=== PATIENT | male | born 1995 | race Two or more races ===

== ENCOUNTER 2022-09-16 17:29 | Inpatient (IN) ==
[2022-09-16] MEDS ORDERED: LORazepam 2 MG/1 ML VIAL IV STA ×2 (18:16→18:47)
[2022-09-16] MEDS ORDERED: SODIUM CHLORIDE 0.9% 1000ML 1,000 ML IV SCH (18:30)
[2022-09-16 18:37] LABS: Basophils # (auto) 0.04 K/uL (0-0.2); Basophils % (auto) 0.4 %; Hematocrit (blood only) 46.2 % (40.1-51.0); Hemoglobin 16.6 g/dl (14.0-18.0); Immature Granulocytes # (auto) 0.03 K/uL (0.00-0.02); Immature Granulocytes % (auto) 0.3 %; Lymphocytes # (auto) 1.48 K/uL (1.2-3.4); Lymphocytes % (auto) 16.2 %; Mean Corpuscular Hemoglobin 30.6 pg (25.0-34.0); Mean Corpuscular Hgb Conc 35.9 g/dL (32.0-36.0); Mean Corpuscular Volume 85.1 fL (80.0-100.0); Mean Platelet Volume 10.7 fL (9.4-12.4); Monocytes # (auto) 0.62 K/uL (0.24-0.82); Monocytes % (auto) 6.8 %; Neutrophils # (auto) 6.99 K/uL (1.4-6.5); Neutrophils % (auto) 76.3 %; Platelet Count 201 K/uL (130-400); RDW Coefficient of Variation 11.8 % (11.5-14.5); RDW Standard Deviation 35.7 fL (36.4-46.3); Red Blood Count 5.43 M/uL (4.63-6.08); White Blood Count 9.16 K/ul (4.8-10.8)
[2022-09-16] MEDS ORDERED: SODIUM CHLORIDE 0.9% 1000ML 1,000 ML IV ONE (18:47)
--- NOTE | 2022-09-16 18:51 | Emergency Department Note ---
Impression & Plan Overdose, AMS (altered mental status) ED Provider Note NAME: MARYAM [id number] KRISTOFER AGE: 27 SEX: M : 1995 ARRIVES VIA: Walk-In INFORMANT: Patient, the [facility] ED PROVIDER(S): Yoni Omalley DO CHIEF COMPLAINT: Overdose HPI: The patient is a 27-year-old male that presented to the emergency department from the retirement for an evaluation of overdose. The patient admits to taking BuSpar does a role in Trileptal and "another drug" that he does not know the name of. The patient presented with guards who do not know the patient. [facility] to [facility] the patient took these medications at an unknown time and an unknown amount with an unknown intent. The patient was brought through triage. The triage nurse did call poison control center prior to bringing the patient back to the emergency department. ROS: See above HPI for pertinent positives & negatives. A total of 10 systems reviewed and were otherwise negative. PAST MEDICAL HISTORY: See Below PAST SURGICAL HISTORY: See Below FAMILY HISTORY: See Below SOCIAL HISTORY: See Below HOME MEDICATIONS: See Below ALLERGIES: See Below VITALS: See Below PHYSICAL EXAMINATION: GENERAL: The patient is awake and alert. He is very animated and appears to be responding to internal stimuli. EYES: The conjunctivae are clear. The pupils are round and reactive. EARS, NOSE, MOUTH AND THROAT: The nose is without any evidence of any deformity. Mucous membranes are dry. NECK: The neck is nontender and supple. RESPIRATORY: Normal respiratory effort is noted there is no evidence of wheezing rhonchi or rales CARDIOVASCULAR: Tachycardic and regular heart sounds were noted to auscultation. There is no definite murmur. GASTROINTESTINAL: The abdomen is soft. Abdomen is nontender. MUSCULOSKELETAL/EXTREMITIES: There is no evidence of gross deformity full range of motion is noted in the hips and shoulders. SKIN: There is no obvious evidence of any rash. There are no petechiae, pallor or cyanosis noted. NEUROLOGIC: The patient is awake and alert. He answers questions appropriately but loses concentration easily. Patellar tendon reflexes are 3+ bilaterally. PSYCH: Patient makes poor eye contact mostly evaluation. He is currently d enying any suicidal homicidal ideation. He does admit to taking the medications but states he was try to get high. MEDICAL DECISION MAKING: The patient is a 27-year-old male who presented to the emergency department for an evaluation of altered mental status and possible drug overdose. The patient came from the retirement. He does admit that he took multiple doses of medication in an attempt to get high. He was very vague about any suicidal ideation. The patient was treated with IV fluids and IV Ativan in the emergency department. He was reevaluated multiple times. Given the reported medications that he takes he may be having some adverse effects from this medication. I discussed the patient's laboratory and radiographic studies with him. He was not able to be medically cleared in the emergency department. For this reason I [facility] agreed to evaluate the patient in the emergency department for further management and disposition. Triage Nursing notes reviewed. Prior medical records reviewed Vital Signs: reviewed and remarkable for hypotension. Differential diagnosis: Mood disorder, infection, hypoglycemia, electrolyte abnormalities, cardiac sources, intracerebral event, toxicologic, trauma, neurologic, as well as other pathologies. ER treatment provided: See below Diagnostics interpreted by me: ECG: EKG was obtained in the emergency department. My interpretation is sinus tachycardia 119 bpm. There was no ectopy. There was no acute ST segment a bnormalities noted. No previous tracing was available. Cardiac Monitoring: An order was placed for continuous cardiac monitoring. The monitor shows a rate of 83 bpm with sinus rhythm. Laboratory studies: As stated above and show below. Imaging studies: See below. Radiographic imaging was reviewed by myself Consultation(s): I discussed this case with Dr. Alvarez who [facility] ED COURSE: Procedures: none Critical Care: I have personally spent greater than 35 minutes of critical care time in the di rect management of this patient. This includes bedside care, interpretation of diagnostic studies, and testing, discussion with consultants, patient, and family members, and other required patient management activities. This 35 minutes is in excess of all separately billable procedures. Past Med/Surg History Social History Smoking Status: Unknown if ever smoked Preferred Language: Senegalese Allergies Allergies Allergy/AdvReac Type Severity Reaction Status Date / Time No Known Allergies Allergy Unverified 09/16/22 19:28 Home Meds Home Medications Medication Instructions Recorded Confirmed aripiprazole 5 mg tablet 5 mg PO DAILY 09/16/22 09/16/22 buspirone 10 mg tablet 20 mg PO BID 09/16/22 09/16/22 lithium carbonate 150 mg capsule 150 mg PO HS 09/16/22 09/16/22 lithium carbonate 450 mg 450 mg PO BID 09/16/22 09/16/22 tablet,extended release trazodone 50 mg tablet 50 mg PO HS 09/16/22 09/16/22 white petrolatum 1 applic topical DAILY PRN as 09/16/22 09/16/22 directed Results & Data (ED) Vital Signs Vital Signs - 24 hr 09/16/22 17:59 09/16/22 18:35 09/16/22 18:35 Temperature 36.7 C Temperature Source Temporal Artery Scan Pulse Rate 125 H Pulse Rate [Apical] 123 H Pulse Rate from SpO2 Sensor Respiratory Rate 18 16 Respiratory Effort / Characteristics Non-Labored Spontaneous Respiratory Depth Normal Respiratory Pattern Regular Blood Pressure 141/95 H Blood Pressure [Left Arm] 161/91 H Blood Pressure Mean 110 Blood Pressure Mean [Left Arm] 114 Blood Pressure Position Sitting Pulse Oximetry 100 100 Oxygen Delivery Method Room Air Room Air Sepsis Recent Fever Within 48 Hours No Sepsis New/Unexplained Change in Mental Status No Sepsis Action Taken by Nursing No Action Required 09/16/22 18:35 09/16/22 19:00 09/16/22 19:30 Temperature Temperature Source Pulse Rate 124 H 99 H Pulse Rate [Apical] Pulse Rate from SpO2 Sensor 190 H Respiratory Rate 16 24 Respiratory Effort / Characteristics Respiratory Depth Respiratory Pattern Blood Pressure 116/78 109/81 Blood Pressure [Left Arm] Blood Pressure Mean 90 90 Blood Pressure Mean [Left Arm] Blood Pressure Position Pulse Oximetry 98 98 Oxygen Delivery Method Sepsis Recent Fever Within 48 Hours Sepsis New/Unexplained Change in Mental Status Sepsis Action Taken by Nursing 09/16/22 19:30 09/16/22 20:00 Temperature Temperature Source Pulse Rate 99 H 105 H Pulse Rate [Apical] Pulse Rate from SpO2 Sensor 100 H 103 H Respiratory Rate 27 H 17 Respiratory Effort / Characteristics Respiratory Depth Respiratory Pattern Blood Pressure 128/73 Blood Pressure [Left Arm] Blood Pressure Mean 91 Blood Pressure Mean [Left Arm] Blood Pressure Position Pulse Oximetry 92 96 Oxygen Delivery Method Sepsis Recent Fever Within 48 Hours Sepsis New/Unexplained Change in Mental Status Sepsis Action Taken by Usp Medications Current Medication List: was personally reviewed by me Laboratory Data Attestation: I reviewed the patient's lab results. 09/16/22 18:27 09/16/22 18:27 Lab Results 09/16/22 09/16/22 09/16/22 Range/Units 18:27 18:27 18:27 WBC 9.16 (4.8-10.8) K/ul RBC 5.43 (4.63-6.08) M/uL Hgb 16.6 (14.0-18.0) g/dl Hct 46.2 (40.1-51.0) % MCV 85.1 (80.0-100.0) fL MCH 30.6 (25.0-34.0) pg MCHC 35.9 (32.0-36.0) g/dL RDW Std Deviation 35.7 L (36.4-46.3) fL RDW Coeff of Jennifer 11.8 (11.5-14.5) % Plt Count 201 (130-400) K/uL MPV 10.7 (9.4-12.4) fL Immature Gran % (Auto) 0.3 % Neut % (Auto) 76.3 % Lymph % (Auto) 16.2 % [place] % (Auto) 6.8 % Eos % (Auto) 0.0 % Baso % (Auto) 0.4 % Neut # (Auto) 6.99 H (1.4-6.5) K/uL Lymph # (Auto) 1.48 (1.2-3.4) K/uL [place] # (Auto) 0.62 (0.24-0.82) K/uL Eos # (Auto) 0.00 (0-0.50) K/uL Baso # (Auto) 0.04 (0-0.2) K/uL Immature Gran # (Auto) 0.03 H (0.00-0.02) K/uL PT 11.9 (9.0-12.0) Seconds INR 1.1 (0.9-1.1) APTT 27.2 (21.0-31.0) Seconds PTT Ratio 1.0 Sodium 138 (136-145) mmol/L Potassium 3.8 (3.5-5.1) mmol/L Chloride 105 (98-107) mmol/L Carbon Dioxide 19 L (21-32) mmol/L Anion Gap 14 H (3-11) BUN 10 (6-23) mg/dl Creatinine 1.00 (0.6-1.4) mg/dl Est Cr Clr Drug Dosing Not Reportable Est GFR ( Amer) 119.0 ml/min Est GFR (Non-Af Amer) 102.7 ml/min BUN/Creatinine Ratio 10.0 (10-20) Glucose 144 H (70-99(Fasting)) mg/dl Calcium 10.4 H (8.5-10.1) mg/dl Magnesium 1.9 (1.7-2.4) mg/dl Total Bilirubin 1.2 H (0.2-1.0) mg/dl AST 29 (13-39) U/L ALT 23 (7-52) U/L Alkaline Phosphatase 69 (34-104) U/L Total Creatine Kinase 971 H (30-223) U/L Troponin I High Sens 3.6 (0-20) pg/ml Total Protein 8.2 (6.0-8.3) gm/dl Albumin 5.1 H (3.4-5.0) gm/dl Globulin 3.1 (2.5-4.0) gm/dl Albumin/Globulin Ratio 1.6 (0.9-2) Lipase 68 (11-82) U/L Salicylates (3.0-30) mg/dl Acetaminophen (10-30) ug/ml Arnold Line (0.6-1.2) mmol/L Ethyl Alcohol mg/dL (<10.0) mg/dl SARS-CoV-2, RNA, NAAT (NEGATIVE) 09/16/22 09/16/22 09/16/22 Range/Units 18:27 18:27 18:27 WBC (4.8-10.8) K/ul RBC (4.63-6.08) M/uL Hgb (14.0-18.0) g/dl Hct (40.1-51.0) % MCV (80.0-100.0) fL MCH (25.0-34.0) pg MCHC (32.0-36.0) g/dL RDW Std Deviation (36.4-46.3) fL RDW Coeff of Jennifer (11.5-14.5) % Plt Count (130-400) K/uL MPV (9.4-12.4) fL Immature Gran % (Auto) % Neut % (Auto) % Lymph % (Auto) % [place] % (Auto) % Eos % (Auto) % Baso % (Auto) % Neut # (Auto) (1.4-6.5) K/uL Lymph # (Auto) (1.2-3.4) K/uL [place] # (Auto) (0.24-0.82) K/uL Eos # (Auto) (0-0.50) K/uL Baso # (Auto) (0-0.2) K/uL Immature Gran # (Auto) (0.00-0.02) K/uL PT (9.0-12.0) Seconds INR (0.9-1.1) APTT (21.0-31.0) Seconds PTT Ratio Sodium (136-145) mmol/L Potassium (3.5-5.1) mmol/L Chloride (98-107) mmol/L Carbon Dioxide (21-32) mmol/L Anion Gap (3-11) BUN (6-23) mg/dl Creatinine (0.6-1.4) mg/dl Est Cr Clr Drug Dosing Est GFR ( Amer) ml/min Est GFR (Non-Af Amer) ml/min BUN/Creatinine Ratio (10-20) Glucose (70-99(Fasting)) mg/dl Calcium (8.5-10.1) mg/dl Magnesium (1.7-2.4) mg/dl Total Bilirubin (0.2-1.0) mg/dl AST (13-39) U/L ALT (7-52) U/L Alkaline Phosphatase (34-104) U/L Total Creatine Kinase (30-223) U/L Troponin I High Sens (0-20) pg/ml Total Protein (6.0-8.3) gm/dl Albumin (3.4-5.0) gm/dl Globulin (2.5-4.0) gm/dl Albumin/Globulin Ratio (0.9-2) Lipase (11-82) U/L Salicylates < 3.0 L (3.0-30) mg/dl Acetaminophen < 3 L (10-30) ug/ml Arnold Line < 0.1 L (0.6-1.2) mmol/L Ethyl Alcohol mg/dL < 10.0 (<10.0) mg/dl SARS-CoV-2, RNA, NAAT (NEGATIVE) 09/16/22 Range/Units 18:30 WBC (4.8-10.8) K/ul RBC (4.63-6.08) M/uL Hgb (14.0-18.0) g/dl Hct (40.1-51.0) % MCV (80.0-100.0) fL MCH (25.0-34.0) pg MCHC (32.0-36.0) g/dL RDW Std Deviation (36.4-46.3) fL RDW Coeff of Jennifer (11.5-14.5) % Plt Count (130-400) K/uL MPV (9.4-12.4) fL Immature Gran % (Auto) % Neut % (Auto) % Lymph % (Auto) % [place] % (Auto) % Eos % (Auto) % Baso % (Auto) % Neut # (Auto) (1.4-6.5) K/uL Lymph # (Auto) (1.2-3.4) K/uL [place] # (Auto) (0.24-0.82) K/uL Eos # (Auto) (0-0.50) K/uL Baso # (Auto) (0-0.2) K/uL Immature Gran # (Auto) (0.00-0.02) K/uL PT (9.0-12.0) Seconds INR (0.9-1.1) APTT (21.0-31.0) Seconds PTT Ratio Sodium (136-145) mmol/L Potassium (3.5-5.1) mmol/L Chloride (98-107) mmol/L Carbon Dioxide (21-32) mmol/L Anion Gap (3-11) BUN (6-23) mg/dl Creatinine (0.6-1.4) mg/dl Est Cr Clr Drug Dosing Est GFR ( Amer) ml/min Est GFR (Non-Af Amer) ml/min BUN/Creatinine Ratio (10-20) Glucose (70-99(Fasting)) mg/dl Calcium (8.5-10.1) mg/dl Magnesium (1.7-2.4) mg/dl Total Bilirubin (0.2-1.0) mg/dl AST (13-39) U/L ALT (7-52) U/L Alkaline Phosphatase (34-104) U/L Total Creatine Kinase (30-223) U/L Troponin I High Sens (0-20) pg/ml Total Protein (6.0-8.3) gm/dl Albumin (3.4-5.0) gm/dl Globulin (2.5-4.0) gm/dl Albumin/Globulin Ratio (0.9-2) Lipase (11-82) U/L Salicylates (3.0-30) mg/dl Acetaminophen (10-30) ug/ml Arnold Line (0.6-1.2) mmol/L Ethyl Alcohol mg/dL (<10.0) mg/dl SARS-CoV-2, RNA, NAAT NEGATIVE (NEGATIVE) Administered Medications Discontinued Medications Sodium Chloride (Nss 1000ml) 1,000 mls @ 999 mls/hr IV .Q1H1M YVONNE Stop: 09/16/22 19:30 Last Infusion: 09/16/22 19:30 Dose: 0 mls/hr Documented By: Admin: 09/16/22 18:35 Dose: 999 mls/hr Documented By: DONNY Sodium Chloride (Nss 1000ml) 1,000 mls @ 999 mls/hr IV .Q1H1M ONE Stop: 09/16/22 19:47 Last Infusion: 09/16/22 20:50 Dose: 0 mls/hr Documented By: Admin: 09/16/22 19:14 Dose: 999 mls/hr Documented By: EMILI Lorazepam (Lorazepam 2 Mg/1 Ml Vial) 1 mg IV NOW STA Stop: 09/16/22 18:17 Last Admin: 09/16/22 18:33 Dose: 1 mg Documented By: DONNY Lorazepam (Lorazepam 2 Mg/1 Ml Vial) 1 mg IV NOW STA Stop: 09/16/22 18:48 Last Admin: 09/16/22 19:13 Dose: 1 mg Documented By: EMILI Imaging Data Radiologist's Impression: Chest X-Ray 09/16/22 18:16 XR chest 1V portable CLINICAL HISTORY: od TECHNIQUE: Single frontal radiograph of the chest was obtained. Comparison: None available at the time of this dictation. FINDINGS: No lines and tubes are seen. The cardiomediastinal silhouette is normal. The lungs are clear. No evidence of pleural effusion or pneumothorax. IMPRESSION: No acute chest disease. ACT 112: Negative or not required by law. Electronically signed by: Carlos Hedrick M.D. 09/16/2022 8:25 PM Discharge Plan Visit Data Chief Complaint: Bradycardia Stated Complaint: TOOK A BUNCH OF DIFF DRUGS ED Provider: Yoni Omalley Discharge Problem: Overdose, AMS (altered mental status) Patient Disposition: Being Evaluated by Hospitalist
[2022-09-16 18:53] LABS: INR 1.1 (0.9-1.1); Partial Thromboplastin Time 27.2 Seconds (21.0-31.0); Prothrombin Time 11.9 Seconds (9.0-12.0)
[2022-09-16 19:04] LABS: Troponin I High Sensitivity 3.6 pg/ml (0-20)
[2022-09-16 19:05] LABS: Alanine Aminotransferase 23 U/L (7-52); Albumin Globulin Ratio 1.6 (0.9-2); Albumin Level 5.1 gm/dl (3.4-5.0); Alkaline Phosphatase 69 U/L (34-104); Anion Gap 14 (3-11); Aspartate Aminotransferase 29 U/L (13-39); Bilirubin,Total 1.2 mg/dl (0.2-1.0); Blood Urea Nitrogen 10 mg/dl (6-23); Calcium 10.4 mg/dl (8.5-10.1); Carbon Dioxide 19 mmol/L (21-32); Chloride 105 mmol/L (98-107); Creatine Kinase 971 U/L (30-223); Est GFR (Non-African American) 102.7 ml/min; Globulin 3.1 gm/dl (2.5-4.0); Glucose 144 mg/dl (70-99(Fasting)); Lipase 68 U/L (11-82); Magnesium 1.9 mg/dl (1.7-2.4); Potassium 3.8 mmol/L (3.5-5.1); Sodium 138 mmol/L (136-145); Total Protein 8.2 gm/dl (6.0-8.3)
[2022-09-16 19:06] LABS: Acetaminophen < 3 ug/ml (10-30); Salicylate < 3.0 mg/dl (3.0-30)
--- NOTE | 2022-09-16 20:27 | XRay Report ---
XR chest 1V portable CLINICAL HISTORY: od TECHNIQUE: Single frontal radiograph of the chest was obtained. Comparison: None available at the time of this dictation. FINDINGS: No lines and tubes are seen. The cardiomediastinal silhouette is normal. The lungs are clear. No evid ence of pleural effusion or pneumothorax. IMPRESSION: No acute chest disease. ACT 112: Negative or not required by law. Electronically signed by: Carlos Hedrick M.D. 09/16/2022 8:25 PM
[2022-09-16] MEDS ORDERED: NITROGLYCERIN SL 0.4 MG/TAB TAB SL PRN (21:51)
--- NOTE | 2022-09-16 22:57 | History and Physical Report ---
DATE OF ADMISSION: 09/16/2022. CHIEF COMPLAINT: Polydrug overdose. HISTORY OF PRESENT ILLNESS: This 27-year-old male with history of anxiety and bipolar disorder, [facility] because of polydrug overdose. The patient says he took trazodone, he took buspirone, his medications and he also took medication from other patient, Trileptal. He does not know how many medications he took. The patient says he is stressed out. He is speaking randomly and tangentially. Could not get the reason why he took those medications. He was constantly talking. When he came in, he was tachycardic. Currently, he is hemodynamically stable. He says his legs are hurting. Otherwise, denies any chest pain. No shortness of breath, no nausea, no abdominal pain. He says also he has some back pain. Currently, no headache, no blurred visions or double visions. He says he is eating okay. Could not get much history from the patient at this time. ALLERGIES: No known drug allergies. PAST MEDICAL HISTORY: As mentioned above. PAST SURGICAL HISTORY: The patient denies any surgeries. MEDICATIONS: Seems to be the patient is on aripiprazole 5 mg p.o. daily, buspirone 20 mg p.o. b.i.d., lithium 150 mg p.o. at bedtime and lithium 450 mg p.o. b.i.d., trazodone 50 mg p.o. at bedtime, white petroleum topical daily p.r.n. FAMILY HISTORY: The patient denies any family history. SOCIAL HISTORY: The patient used to smoke cigarettes, last smoke was 3 weeks ago. Denies any alcohol or any drug use. REVIEW OF SYSTEMS: As per HPI. Could not get complete review of systems as the patient is somewhat talking tangentially. PHYSICAL EXAMINATION: GENERAL: The patient is alert and awake, somewhat restless. VITAL SIGNS: Temperature 36.7, pulse 105, respiratory rate 17, blood pressure 128/73, oxygen 96% on room air. HEENT: Pupils equal, round, and reactive to light. Oral mucosa moist. NECK: No JVD, no neck masses. CARDIOVASCULAR: S1 and S2 heard. Tachycardia. No murmurs. RESPIRATORY SYSTEM: Normal AP diameter. No accessory muscle use. No wheezing, no crackles. ABDOMEN: Soft, bowel sounds present, nontender, no distention. CENTRAL NERVOUS SYSTEM: Alert and awake, speaking tangentially. Obeys simple commands. No facial droop. Speech is clear. Moves extremities. EXTREMITIES: No edema, no erythema. LABORATORY DATA: WBC 9.6, hemoglobin 16.6, hematocrit 46.2, platelets 201. PT 11.9, INR 1.1, APTT 27.2, PTT 1. Sodium 138, potassium 3.8, chloride 105, bicarbonate 19, anion gap 14, BUN 10, creatinine 1, serum glucose 144, calcium 10.4, magnesium 1.9, total bilirubin 1.2, AST 29, ALT 23, alkaline phosphatase 69, total creatine kinase 971. Troponin I high sensitivity 3.6. Lipase 68. Salicylate less than 3, acetaminophen less than 3, ethyl alcohol less than 10. SARS-CoV-2 rapid test negative. IMAGING DATA: Chest x-ray, no acute findings. EKG: Sinus tachycardia at a rate of 119, bi-atrial enlargement, QTc 458, QRS 80. ASSESSMENT AND PLAN: This is a 27-year-old male who presents with polydrug overdose. 1. Polydrug overdose: It looks like he took buspirone, trazodone, and Trileptal, does not know the amount. Discussed with Poison Control. Supportive care and follow the repeat EKG in 4-6 hours and also recommended to give IV Ativan 1-2 mg as needed for any agitation. Will closely monitor in the tele floor. Will also follow lithium levels. Suicidal precautions. Psych consult in a.m. Clear liquid diet for now. 2. Mild rhabdomyolysis: CPK 954. Give IV fluids at normal saline 200 mL per hour. Follow repeat CPK levels in the a.m. 3. History of anxiety and bipolar: Will hold his home medication for now. Consult psychiatry in the a.m. 4. Deep venous thrombosis prophylaxis: Sequential compression devices for now. DISPOSITION: Closely monitor in tele floor. Level 1 full code. Expect [facility] to [facility] when stable or inpatient psych unit. [facility] [id number] [facility]
[2022-09-16] MEDS: SODIUM CHLORIDE 0.9% 1000ML 1,000 ML IV SCH (23:14)
[2022-09-17] MEDS: SODIUM CHLORIDE 0.9% 1000ML 1,000 ML IV SCH ×5 (04:06→23:57)
[2022-09-17 04:31] LABS: Appearance Urine Clear (Clear); Bilirubin Urine Negative (Negative); Blood Urine Negative (Negative); Color Urine Yellow; Glucose Urine UA Negative (Negative); Ketones Urine 1+ (Negative); Leukocyte Esterase Urine Negative (Negative); Nitrite Urine Negative (Negative); Protein Urine Negative (Negative); Specific Gravity Urine 1.015 (1.000-1.030); Urobilinogen Urine Negative (Negative)
[2022-09-17 04:51] LABS: Amphetamines+Metham, Urine Neg (Neg); Barbiturates, Urine Neg (Neg); Benzodiazepine, Urine Neg (Neg); Cocaine, Urine Neg (Neg); MDMA (Ecstacy), Urine Neg (Neg); Methadone, Urine Neg (Neg); Opiate, Urine Neg (Neg); Phencyclidine, Urine Neg (Neg)
[2022-09-17 06:26] LABS: Basophils # (auto) 0.06 K/uL (0-0.2); Basophils % (auto) 0.8 %; Eosinophils # (auto) 0.03 K/uL (0-0.50); Eosinophils % (auto) 0.4 %; Hematocrit (blood only) 42.4 % (40.1-51.0); Hemoglobin 14.6 g/dl (14.0-18.0); Immature Granulocytes # (auto) 0.01 K/uL (0.00-0.02); Immature Granulocytes % (auto) 0.1 %; Lymphocytes # (auto) 2.23 K/uL (1.2-3.4); Lymphocytes % (auto) 31.4 %; Mean Corpuscular Hemoglobin 30.2 pg (25.0-34.0); Mean Corpuscular Hgb Conc 34.4 g/dL (32.0-36.0); Mean Corpuscular Volume 87.8 fL (80.0-100.0); Mean Platelet Volume 10.4 fL (9.4-12.4); Monocytes # (auto) 0.59 K/uL (0.24-0.82); Monocytes % (auto) 8.3 %; Neutrophils # (auto) 4.18 K/uL (1.4-6.5); Platelet Count 168 K/uL (130-400); RDW Coefficient of Variation 11.9 % (11.5-14.5); RDW Standard Deviation 38.4 fL (36.4-46.3); Red Blood Count 4.83 M/uL (4.63-6.08)
[2022-09-17 08:09] LABS: BUN Creatinine Ratio 8.2 (10-20); Bilirubin Direct 0.3 mg/dl (0-0.2); Bilirubin,Total 1.1 mg/dl (0.2-1.0); Calcium 8.3 mg/dl (8.5-10.1); Creatinine Clr Calc Pharmacy 120.9 ml/min; Est GFR (African American) 138.4 ml/min; Est GFR (Non-African American) 119.4 ml/min; Magnesium 1.9 mg/dl (1.7-2.4); Potassium 4.5 mmol/L (3.5-5.1)
[2022-09-17 08:46] LABS: Troponin I High Sensitivity 6.6 pg/ml (0-20)
--- NOTE | 2022-09-17 14:23 | Psychiatric Consultation ---
Date of Consultation September 17, 2022 Impression / Recommendations Impression 27 yo male with reported hx of bipolar I disorder, currently incarcerated and misusing his prescription medications as well as using diverted medications. He was not sleeping well prior to ingestion which could suggest octavio but his MSE is more consistent with serotonin syndrome and/or hypomania than with any verito octavio/psychosis. He is an unreliable historian. (1) Overdose: Encounter type: initial encounter Injury intent: undetermined intent Qualified Code(s): T50.904A - Poisoning by unspecified drugs, medicaments and biological substances, undetermined, initial encounter (2) AMS (altered mental status): Altered mental status type: unspecified Qualified Code(s): R41.82 - Altered mental status, unspecified (3) Bipolar 1 disorder: Plan Dr. Faulkner updated. Continue to hold "home medications" of Abilify, Buspar, lithium, trazodone. [place] places at higher risk of serotonin syndrome with OD but level was undetectable. continues under observation of guards pending medical clearance to return to intermediate CPK trending down but certainly early to reintroduce antipsychotics as atypicals also have some serotonergic properties--would favor Haldol 5 mg if needed to acute agitation will offer Seroquel 100 mg this for sleep prn as low risk EPS and he prefers not to restart Zyprexa. His Abilify if more serotnergic and likely to cause akathisia acutely. unsure if TOLENTINO available to intermediate psychiatrist but managing bipolar with monotherapy without medication by mouth would be ideal on transition if he agrees Ativan 1 mg IV q4 prn for restlessness/mood will follow to assist with acute management of psych meds Psych History Identifying Data 27 yo inmate at [facility], seen while store boarding in the ED pending admission to telemetry for medical monitoring following polydrug OD. Chief Complaint "yeah I wasn't sleeping, I'd rather be here to get my meds worked out". History of Present Illness Patient reportedly with dx of anxiety and bipolar disorder, reported to taking trazodone, buspar, and another inmates Trileptal (unknown amounts) due to stress. On presentation to ED he was rather tangential, hyperverbal, tachycardic. He c/o of some muscle pain in his legs with mildly elevated CPK (<1,000) which has trended down. Per liaison he had not slept for a few days at the intermediate and staff felt he may be having a manic episode but likely also not taking meds consistently as found to be hoarding prescribed medications on 09/09/22. It's unclear if he was trying to harm himself, he apparently had indicated it may just want to "get high." Today the patient appears jittery on assessment. He has received a few doses of IV Ativan. He feels that his thoughts may be racing with subjective tachy. Pulse did increase on monitor when relating portions of his history which was mainly unreliable stating he is a victim of circumstance and was always a "nice pineda." Doesn't want to harm himself here just wants to "better his circumstance." 2 Correction officers at bedside and he thanked them for doing their job. They stated he was in bed, not resting, but also not agitated during their shift. He's not able to provide a full list of past med trials, stated that he has taken Depakote before and Zyprexa with minimal benefit but "willing to do whatever" to calm down. He did not elaborate on any previous gestures. Allergies Allergy/AdvReac Type Severity Reaction Status Date / Time No Known Allergies Allergy Unverified 09/16/22 19:28 Home Medications Medication Instructions Recorded Confirmed Type aripiprazole 5 mg tablet 5 mg PO DAILY 09/16/22 09/16/22 History buspirone 10 mg tablet 20 mg PO BID 09/16/22 09/16/22 History lithium carbonate 150 mg capsule 150 mg PO HS 09/16/22 09/16/22 History lithium carbonate 450 mg 450 mg PO BID 09/16/22 09/16/22 History tablet,extended release trazodone 50 mg tablet 50 mg PO HS 09/16/22 09/16/22 History white petrolatum 1 applic topical DAILY PRN as 09/16/22 09/16/22 History directed Family History unable to elaborate Personal History Beliefs That Will Affect Care: None Patient History Social History Smoking Status: Unknown if ever smoked Hx Alcohol Use: No Hx Substance Use: Yes Preferred Language: Azeri Communication Ability: Effective 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 Beliefs That Will Affect Care: None Current Living Situation: Other Current Living Situation Comment: correctional facility Feels Safe at Home: Yes Assistive Devices: None Physical Exam Psychiatric: Orientation: alert Apperance: + disheveled Eye Contact: + fair eye contact Motor Behavior: + akathisia Speech: no pressured speech Affect: + anxious affect Mood: + anxious mood Thought Process: + circumstantial thought process Thought Content: reality based without de lusions Suicidal Thoughts: denies suicidal thoughts Homicidal Thoughts: denies homicidal thoughts Hallucinations: no auditory hallucinations and no visual hallucinations Cognition: language grossly intact Insight: + limited insight Judgement: + poor judgement Vital Signs (Past 24 Hours): Last Vital Signs Temp 37.4 C 09/17/22 13:58 Pulse 100 H 09/17/22 13:58 Resp 18 09/17/22 13:58 BP 135/92 09/17/22 13:58 Pulse Ox 100 09/17/22 13:58 O2 Del Method 09/17/22 13:58 Review of Systems All systems reviewed & are unremarkable except as noted in HPI & below Results & Data (PSY) Laboratory Results Labs 09/16/22 09/16/22 09/16/22 18:27 18:27 18:27 WBC 9.16 RBC 5.43 Hgb 16.6 Hct 46.2 MCV 85.1 MCH 30.6 MCHC 35.9 RDW Std Deviation 35.7 L RDW Coeff of Jennifer 11.8 Plt Count 201 MPV 10.7 Immature Gran % (Auto) 0.3 Neut % (Auto) 76.3 Lymph % (Auto) 16.2 Ware % (Auto) 6.8 Eos % (Auto) 0.0 Baso % (Auto) 0.4 Neut # (Auto) 6.99 H Lymph # (Auto) 1.48 Ware # (Auto) 0.62 Eos # (Auto) 0.00 Baso # (Auto) 0.04 Immature Gran # (Auto) 0.03 H PT 11.9 INR 1.1 APTT 27.2 PTT Ratio 1.0 Sodium 138 Potassium 3.8 Chloride 105 Carbon Dioxide 19 L Anion Gap 14 H BUN 10 Creatinine 1.00 Est Cr Clr Drug Dosing Not Reportable Est GFR ( Amer) 119.0 Est GFR (Non-Af Amer) 102.7 BUN/Creatinine Ratio 10.0 Glucose 144 H Calcium 10.4 H Magnesium 1.9 Total Bilirubin 1.2 H Direct Bilirubin AST 29 ALT 23 Alkaline Phosphatase 69 Total Creatine Kinase 971 H Troponin I High Sens 3.6 Total Protein 8.2 Albumin 5.1 H Globulin 3.1 Albumin/Globulin Ratio 1.6 Lipase 68 Urine Color Urine Appearance Urine pH Ur Specific [place] Urine Protein Urine Glucose (UA) Urine Ketones Urine Blood Urine Nitrite Urine Bilirubin Urine Urobilinogen Ur Leukocyte Esterase Salicylates Urine Opiates Screen Ur Methadone, Qual Acetaminophen Urine Barbiturates Ur Phencyclidine (PCP) U Amphetamin/Meth Scrn MDMA (Ecstasy) Screen U Benzodiazepines Scrn [place] Ur Cocaine Metabolite U Marijuana (THC) Screen Ethyl Alcohol mg/dL SARS-CoV-2, RNA, NAAT 09/16/22 09/16/22 09/16/22 18:27 18:27 18:27 WBC RBC Hgb Hct MCV MCH MCHC RDW Std Deviation RDW Coeff of Jennifer Plt Count MPV Immature Gran % (Auto) Neut % (Auto) Lymph % (Auto) [place] % (Auto) Eos % (Auto) Baso % (Auto) Neut # (Auto) Lymph # (Auto) [place] # (Auto) Eos # (Auto) Baso # (Auto) Immature Gran # (Auto) PT INR APTT PTT Ratio Sodium Potassium Chloride Carbon Dioxide Anion Gap BUN Creatinine Est Cr Clr Drug Dosing Est GFR ( Amer) Est GFR (Non-Af Amer) BUN/Creatinine Ratio Glucose Calcium Magnesium Total Bilirubin Direct Bilirubin AST ALT Alkaline Phosphatase Total Creatine Kinase Troponin I High Sens Total Protein Albumin Globulin Albumin/Globulin Ratio Lipase Urine Color Urine Appearance Urine pH Ur Specific [place] Urine Protein Urine Glucose (UA) Urine Ketones Urine Blood Urine Nitrite Urine Bilirubin Urine Urobilinogen Ur Leukocyte Esterase Salicylates < 3.0 L Urine Opiates Screen Ur Methadone, Qual Acetaminophen < 3 L Urine Barbiturates Ur Phencyclidine (PCP) U Amphetamin/Meth Scrn MDMA (Ecstasy) Screen U Benzodiazepines Scrn [place] < 0.1 L Ur Cocaine Metabolite U Marijuana (THC) Screen Ethyl Alcohol mg/dL < 10.0 SARS-CoV-2, RNA, NAAT 09/16/22 09/17/22 09/17/22 18:30 04:15 04:15 WBC RBC Hgb Hct MCV MCH MCHC RDW Std Deviation RDW Coeff of Jennifer Plt Count MPV Immature Gran % (Auto) Neut % (Auto) Lymph % (Auto) [place] % (Auto) Eos % (Auto) Baso % (Auto) Neut # (Auto) Lymph # (Auto) [place] # (Auto) Eos # (Auto) Baso # (Auto) Immature Gran # (Auto) PT INR APTT PTT Ratio Sodium Potassium Chloride Carbon Dioxide Anion Gap BUN Creatinine Est Cr Clr Drug Dosing Est GFR ( Amer) Est GFR (Non-Af Amer) BUN/Creatinine Ratio Glucose Calcium Magnesium Total Bilirubin Direct Bilirubin AST ALT Alkaline Phosphatase Total Creatine Kinase Troponin I High Sens Total Protein Albumin Globulin Albumin/Globulin Ratio Lipase Urine Color Yellow Urine Appearance Clear Urine pH 7.0 Ur Specific [place] 1.015 Urine Protein Negative Urine Glucose (UA) Negative Urine Ketones 1+ H Urine Blood Negative Urine Nitrite Negative Urine Bilirubin Negative Urine Urobilinogen Negative Ur Leukocyte Esterase Negative Salicylates Urine Opiates Screen Neg Ur Methadone, Qual Neg Acetaminophen Urine Barbiturates Neg Ur Phencyclidine (PCP) Neg U Amphetamin/Meth Scrn Neg MDMA (Ecstasy) Screen Neg U Benzodiazepines Scrn Neg [place] Ur Cocaine Metabolite Neg U Marijuana (THC) Screen Neg Ethyl Alcohol mg/dL SARS-CoV-2, RNA, NAAT NEGATIVE 09/17/22 09/17/22 05:58 05:58 WBC 7.10 RBC 4.83 Hgb 14.6 Hct 42.4 MCV 87.8 MCH 30.2 MCHC 34.4 RDW Std Deviation 38.4 RDW Coeff of Jennifer 11.9 Plt Count 168 MPV 10.4 Immature Gran % (Auto) 0.1 Neut % (Auto) 59.0 Lymph % (Auto) 31.4 Ware % (Auto) 8.3 Eos % (Auto) 0.4 Baso % (Auto) 0.8 Neut # (Auto) 4.18 Lymph # (Auto) 2.23 Ware # (Auto) 0.59 Eos # (Auto) 0.03 Baso # (Auto) 0.06 Immature Gran # (Auto) 0.01 PT INR APTT PTT Ratio Sodium 139 Potassium 4.5 Chloride 111 H Carbon Dioxide 25 Anion Gap 3 BUN 7 Creatinine 0.85 Est Cr Clr Drug Dosing 120.9 Est GFR ( Amer) 138.4 Est GFR (Non-Af Amer) 119.4 BUN/Creatinine Ratio 8.2 L Glucose 84 Calcium 8.3 L D Magnesium 1.9 Total Bilirubin 1.1 H Direct Bilirubin 0.3 H AST 22 ALT 17 Alkaline Phosphatase 53 Total Creatine Kinase 653 H Troponin I High Sens 6.6 Total Protein 6.0 D Albumin 4.0 Globulin Albumin/Globulin Ratio Lipase Urine Color Urine Appearance Urine pH Ur Specific [place] Urine Protein Urine Glucose (UA) Urine Ketones Urine Blood Urine Nitrite Urine Bilirubin Urine Urobilinogen Ur Leukocyte Esterase Salicylates Urine Opiates Screen Ur Methadone, Qual Acetaminophen Urine Barbiturates Ur Phencyclidine (PCP) U Amphetamin/Meth Scrn MDMA (Ecstasy) Screen U Benzodiazepines Scrn [place] Ur Cocaine Metabolite U Marijuana (THC) Screen Ethyl Alcohol mg/dL SARS-CoV-2, RNA, NAAT Diagnostic Findings nl Qtc Medications Administered Sodium Chloride (Nss 1000ml) 1,000 mls @ 200 mls/hr IV .Q5H YVONNE Stop: 10/16/22 21:50 Last Admin: 09/17/22 09:19 Dose: 200 mls/hr Documented By: Infusion: 09/17/22 09:18 Dose: 0 mls/hr Documented By: Admin: 09/17/22 04:06 Dose: 200 mls/hr Documented By: Infusion: 09/17/22 04:06 Dose: 0 mls/hr Documented By: Admin: 09/16/22 23:14 Dose: 200 mls/hr Documented By: EMILI Coding Level of Care Code 33614 U Intl Hosp Care Lvl 2 Diagnoses Overdose T50.904A Encounter type: initial encounter Injury intent: undetermined intent AMS (altered mental status) R41.82 Altered mental status type: unspecified Bipolar 1 disorder F31.9
[2022-09-17] MEDS ORDERED: QUEtiapine FUMARATE 100 MG TABLET PO PRN (14:42)
--- NOTE | 2022-09-17 15:22 | Electrocardiogram Report ---
Test Reason : Blood Pressure : / mmHG Vent. Rate : 119 BPM Atrial Rate : 119 BPM P-R Int : 136 ms QRS Dur : 080 ms QT Int : 326 ms P-R-T Axes : 069 065 057 degrees QTc Int : 458 ms Poor data quality, interpretation may be adversely affected Sinus tachycardia Biatrial enlargement Possible Anterior infarct , age undetermined Abnormal ECG No previous ECGs available Confirmed by Jose Wilks ([id number]) on 09/17/2022 3:22:37 PM Referred By: [facility] Confirmed By:Jose Wilks
--- NOTE | 2022-09-17 15:49 | Electrocardiogram Report ---
Test Reason : Blood Pressure : / mmHG Vent. Rate : 097 BPM Atrial Rate : 097 BPM P-R Int : 164 ms QRS Dur : 080 ms QT Int : 336 ms P-R-T Axes : 065 062 055 degrees QTc Int : 426 ms Poor data quality, interpretation may be adversely affected Normal sinus rhythm Possible Septal infarct (cited on or before 16-SEP-2022) Abnormal ECG When compared with ECG of 16-SEP-2022 18:11, No significant change was found Confirmed by Jose Wilks ([id number]) on 09/17/2022 3:49:03 PM Referred By: [facility] Confirmed By:Jose Wilks
--- NOTE | 2022-09-17 15:51 | Electrocardiogram Report ---
Test Reason : Blood Pressure : / mmHG Vent. Rate : 095 BPM Atrial Rate : 095 BPM P-R Int : 154 ms QRS Dur : 090 ms QT Int : 346 ms P-R-T Axes : 073 077 063 degrees QTc Int : 434 ms Normal sinus rhythm When compared with ECG of 17-SEP-2022 00:33, No significant change was found Confirmed by Jose Wilks ([id number]) on 09/17/2022 3:51:16 PM Referred By: [facility] Confirmed By:Jose Wilks
--- NOTE | 2022-09-17 16:21 | Electrocardiogram Report ---
Test Reason : Blood Pressure : / mmHG Vent. Rate : 089 BPM Atrial Rate : 089 BPM P-R Int : 152 ms QRS Dur : 104 ms QT Int : 356 ms P-R-T Axes : 052 070 043 degrees QTc Int : 433 ms Normal sinus rhythm Incomplete right bundle branch block When compared with ECG of 17-SEP-2022 00:56, No significant change was found Confirmed by Jose Wilks ([id number]) on 09/17/2022 4:21:19 PM Referred By: [facility] Confirmed By:Jose Wilks
[2022-09-17] MEDS: LORazepam 2 MG/1 ML VIAL IV PRN ×2 (16:34→19:37)
--- NOTE | 2022-09-17 16:40 | Hospitalist Progress Note ---
Date of Service September 17, 2022 Assessment & Plan (1) Overdose: Plan: Has been bipolar disorder and on multiple antipsychotic medications as in the medication list Took a number of medications to get the to get some symptomatic improvement Came in with change in mental status Poison center was consulted and EKGs are done which are not showing any significant QT prolongation Will need to observe for any deterioration Has significant spasmodic movements involving the extremities and occasional agitation Appreciate psychiatric input and recommendation Will start regular diet Monitor labs and monitor in telemetry unit Spasmodic movements involving the extremities Wants some medicine for that Will try Ativan as needed Mild rhabdomyolysis Levels are improving Advised to drink more fluid (2) Bipolar 1 disorder: Plan: Has been on multiple medications All of the medicines are on hold except Seroquel and Ativan as needed Haldol can be given for agitation if needed (3) AMS (altered mental status): Plan: Change in mental status is likely secondary to polydrug overdose Urine tox screen is negative Seems to be clearing up Not any more confused DVT prophylaxis SCDs CODE STATUS Full Admission and Anticipated Discharge Date Admission Date: September 16, 2022 Subjective 09/17/2022 The patient was seen and examined in telemetry unit He is very anxious and mentions that he has not slept for the last 6 nights Complains to have tremors and abnormal movements involving the extremities which he cannot control Denies any fever and or chills, no nausea and or vomiting Review of Systems Review of Systems: All systems reviewed and are unremarkable except as noted below Neurologic: Very unstable and has abnormal movements involving the extremities Physical Exam Physical Exam: Lying in bed with anxiety Constitutional: well developed, well nourished, + ill appearing and average body habitus Eyes: PERRL, conjunctivae normal, anicteric sclerae ENMT: external ear and nose normal, oropharynx normal Neck: trachea midline, no thyromegaly Respiratory: no respiratory distress Auscultation: lungs clear to auscultation bilaterally Cardiovascular: Rate/Rhythm: regular rate and regular rhythm; not tachycardic Heart Sounds: normal S1 and normal S2; no murmur Extremities: no edema Gastrointestinal (Abdomen): Inspection/Auscultation: normal bowel sounds; abdomen not distended Percussion/Palpation: abdomen soft; abdomen nontender Musculoskeletal: No acute arthritis involving any joint Neurologic: normal touch/pain/proprioception and moves all extremities; no focal motor deficits, not confused and not obtunded Has spasmodic movements involving the extremities which is involuntary Lymphatic: no cervical or axillary lymphadenopathy Results & Data Results & Data ([facility]) Vital Signs (Past 12 Hours) Vital Signs Temp Pulse Resp BP Pulse Ox O2 Del Method 09/17/22 15:37 36.8 C 97 H 20 130/79 100 Room Air 09/17/22 13:58 37.4 C 100 H 18 135/92 100 Room Air 09/17/22 07:00 88 18 114/74 99 Room Air Laboratory Results Short CBC 09/16/22 09/17/22 Range/Units 18:27 05:58 WBC 9.16 7.10 (4.8-10.8) K/ul Hgb 16.6 14.6 (14.0-18.0) g/dl Hct 46.2 42.4 (40.1-51.0) % Plt Count 201 168 (130-400) K/uL BMP 09/16/22 09/17/22 18:27 05:58 Sodium 138 139 Potassium 3.8 4.5 Chloride 105 111 H Carbon Dioxide 19 L 25 BUN 10 7 Creatinine 1.00 0.85 Glucose 144 H 84 Calcium 10.4 H 8.3 L D Cardiac Enzymes 09/16/22 09/17/22 Range/Units 18:27 05:58 Total Creatine Kinase 971 H 653 H (30-223) U/L Liver Function 09/16/22 09/17/22 Range/Units 18:27 05:58 Total Bilirubin 1.2 H 1.1 H (0.2-1.0) mg/dl Direct Bilirubin 0.3 H (0-0.2) mg/dl AST 29 22 (13-39) U/L ALT 23 17 (7-52) U/L Alkaline Phosphatase 69 53 (34-104) U/L Albumin 5.1 H 4.0 (3.4-5.0) gm/dl Urine 09/17/22 Range/Units 04:15 Urine Color Yellow Urine Appearance Clear (Clear) Urine pH 7.0 (4.5-7.5) Ur Specific [place] 1.015 (1.000-1.030) Urine Protein Negative (Negative) Urine Glucose (UA) Negative (Negative) Medications Administered Current Inpatient Medications Sodium Chloride (Nss 1000ml) 1,000 mls @ 200 mls/hr IV .Q5H YVONNE Stop: 10/16/22 21:50 Last Admin: 09/17/22 14:23 Dose: 200 mls/hr Lorazepam (Lorazepam 2 Mg/1 Ml Vial) 1 mg IV Q2H PRN PRN Reason: Agitation Stop: 10/16/22 21:50 Nitroglycerin (Nitroglycerin Sl 0.4 Mg/Tab Tab) 0.4 mg SL UD PRN PRN Reason: Chest Pain Stop: 10/16/22 21:50 Quetiapine Fumarate (Quetiapine Fumarate 100 Mg Tablet) 100 mg PO HS PRN PRN Reason: Anxiety/Insomnia Stop: 10/17/22 20:59 (1) Overdose Encounter type: initial encounter Injury intent: undetermined intent Qualified Code(s): T50.904A - Poisoning by unspecified drugs, medicaments and biological substances, undetermined, initial encounter (2) AMS (altered mental status) Altered mental status type: unspecified Qualified Code(s): R41.82 - Altered mental status, unspecified
[2022-09-18] MEDS: SODIUM CHLORIDE 0.9% 1000ML 1,000 ML IV SCH ×2 (05:07→10:45)
[2022-09-18 07:35] LABS: Calcium 8.6 mg/dl (8.5-10.1); Magnesium 1.8 mg/dl (1.7-2.4)
[2022-09-18 07:41] LABS: BUN Creatinine Ratio 8.1 (10-20); Creatinine Clr Calc Pharmacy 120.4 ml/min; Est GFR (African American) 137.7 ml/min; Est GFR (Non-African American) 118.8 ml/min
[2022-09-18 08:49] LABS: Basophils # (auto) 0.05 K/uL (0-0.2); Basophils % (auto) 0.8 %; Eosinophils # (auto) 0.05 K/uL (0-0.50); Eosinophils % (auto) 0.8 %; Hematocrit (blood only) 44.5 % (40.1-51.0); Hemoglobin 15.2 g/dl (14.0-18.0); Immature Granulocytes # (auto) 0.01 K/uL (0.00-0.02); Immature Granulocytes % (auto) 0.2 %; Lymphocytes # (auto) 1.93 K/uL (1.2-3.4); Lymphocytes % (auto) 32.6 %; Mean Corpuscular Hemoglobin 30.3 pg (25.0-34.0); Mean Corpuscular Hgb Conc 34.2 g/dL (32.0-36.0); Mean Corpuscular Volume 88.8 fL (80.0-100.0); Mean Platelet Volume 10.3 fL (9.4-12.4); Monocytes # (auto) 0.32 K/uL (0.24-0.82); Monocytes % (auto) 5.4 %; Neutrophils # (auto) 3.56 K/uL (1.4-6.5); Neutrophils % (auto) 60.2 %; Platelet Count 166 K/uL (130-400); RDW Coefficient of Variation 11.9 % (11.5-14.5); RDW Standard Deviation 38.5 fL (36.4-46.3); Red Blood Count 5.01 M/uL (4.63-6.08); White Blood Count 5.92 K/ul (4.8-10.8)
[2022-09-18 09:15] LABS: Albumin Level 4.4 gm/dl (3.4-5.0); Magnesium 1.8 mg/dl (1.7-2.4); Potassium 4.3 mmol/L (3.5-5.1)
[2022-09-18 09:21] LABS: Albumin Globulin Ratio 1.9 (0.9-2); Creatinine Clr Calc Pharmacy 117.7 ml/min; Est GFR (African American) 136.4 ml/min; Est GFR (Non-African American) 117.7 ml/min; Globulin 2.3 gm/dl (2.5-4.0); Total Protein 6.7 gm/dl (6.0-8.3)
[2022-09-18] MEDS ORDERED: QUEtiapine FUMARATE 200 MG TAB PO STA (12:30)
[2022-09-18] MEDS ORDERED: QUEtiapine FUMARATE 25 MG TABLET PO PRN (12:30)
[2022-09-18] MEDS ORDERED: QUEtiapine FUMARATE 25 MG TABLET PO STA (12:30)
--- NOTE | 2022-09-18 13:33 | Hospitalist Progress Note ---
Date of Service September 18, 2022 Assessment & Plan (1) Overdose: Plan: Per Dr. Faulkner's notes with addendum: Has been bipolar disorder and on multiple antipsychotic medications as in the medication list Took a number of medications to get the to get some symptomatic improvement Came in with change in mental status Poison center was consulted and EKGs are done which are not showing any significant QT prolongation Will need to observe for any deterioration Has significant spasmodic movements involving the extremities and occasional agitation Appreciate psychiatric input and recommendation 09/18 Oriented x3, but reports shakiness, anxiety, racing thoughts, not sleeping well Requests psych reevaluation, discussed with psych liaison Nanci Discussed with Dr. 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 closely Spasmodic movements involving the extremities On as needed Ativan Mild rhabdomyolysis CPK levels trending down Given IV fluids, advised to drink more water (2) Bipolar 1 disorder: Plan: Has been on multiple medications All of the medicines are on hold except Seroquel and Ativan as needed Haldol can be given for agitation if needed (3) AMS (altered mental status): Plan: Change in mental status is likely secondary to polydrug overdose Urine tox screen is negative -- Oriented x3, calm, cooperative DVT prophylaxis SCDs CODE STATUS Full Disposition Anticipate return to correctional facility tomorrow, to continue psychiatric care Admission and Anticipated Discharge Date Admission Date: September 16, 2022 Subjective Follow-up for psychiatry medications overdose, etc. Seen with officers at the bedside And one-to-one observation also Oriented x3, conversant, calm, cooperative States he feels shaky, anxious, having racing thoughts, not sleeping well Denies chest pain, shortness of breath, palpitations, dizziness No fevers or chills, nausea vomiting, abdominal pain, headache Cannot eat properly because of his symptoms No other symptoms Review of Systems Review of Systems: all noted and negative except for above Physical Exam Physical Exam: General- oriented x 3, not in distress, speaks in sentences with no effort or accessory muscle use Eyes- anicteric Neck- no JVD Lungs- clear breath sounds bilaterally, no crackles or wheezing Heart- normal rate, regular rhythm; no murmurs Abdomen- normal bowel sounds, nondistended, soft, nontender Extremities- no pretibial edema, no calf tenderness Neuro- alert, oriented x 3; no gross focal neurologic deficits Skin- warm & dry Psych-somewhat anxious, denies suicidal ideation Results & Data Results & Data ([facility]) Vital Signs (Past 12 Hours) Vital Signs Temp Pulse Pulse Resp BP Pulse Ox O2 Del Method 09/18/22 08:47 36.7 C 83 18 131/77 100 Room Air 09/18/22 07:33 59 L 09/18/22 03:40 36.5 C 77 16 119/77 99 Room Air all noted and reviewed including below (1) Overdose Encounter type: initial encounter Injury intent: undetermined intent Qualified Code(s): T50.904A - Poisoning by unspecified drugs, medicaments and biological substances, undetermined, initial encounter (2) AMS (altered mental status) Altered mental status type: unspecified Qualified Code(s): R41.82 - Altered mental status, unspecified
--- NOTE | 2022-09-18 15:29 | Electrocardiogram Report ---
Test Reason : Blood Pressure : / mmHG Vent. Rate : 073 BPM Atrial Rate : 073 BPM P-R Int : 164 ms QRS Dur : 080 ms QT Int : 378 ms P-R-T Axes : 068 044 040 degrees QTc Int : 416 ms Normal sinus rhythm with sinus arrhythmia Normal ECG When compared with ECG of 17-SEP-2022 09:10, No significant change was found Confirmed by Aydin Meade ([id number]) on 09/18/2022 3:28:57 PM Referred By: [facility] Confirmed By:Aydin Meade
--- NOTE | 2022-09-18 18:36 | Psychiatric Progress Note ---
Date of Service September 18, 2022 Impression / Recommendations Impression 27 yo male with reported hx of bipolar I disorder, currently incarcerated and misusing his prescription medications as well as using diverted medications. He was not sleeping well prior to ingestion which could suggest octavio but his MSE is more consistent with serotonin syndrome and/or hypomania than with any verito octavio/psychosis. He is an unreliable historian. 09/18/22: subjective reports of symptoms, secondary gain in hospital (1) Overdose: (2) AMS (altered mental status): (3) Bipolar 1 disorder: Plan continue to recommend low dose Seroquel 50 mg prn, did not require 100 mg last hs pending return to facility where his treating psychiatrist can determine timing to restart previous meds or covert to [place]. Patient was educated re: serotonin syndrome and symptoms appear to be resolving. Interval History Identifying Information 27 yo inmate at [facility], initially seen while store boarding in the ED on 09/17/21 pending admission to telemetry for medical monitoring following polydrug OD. Chief Complaint "I just don't feel good, I have a history of trauma and [facility] to the [facility] is just traumatizing. What can you do for me?". Review of Systems Notes see above, continues to report to staff that ingestion was to assist sleep and/or get high. Subjective Subjective Patient was seen & assessed and interval progress reviewed with nursing and Dr. Irizarry. Patient c/o of anxiety, restless, and racing thoughts but no agitation or octavio witnessed. Restlessness in legs appears improved though c/o pain. subjective tachy. Physical Exam Psychiatric Orientation: alert Eye Contact: + fair eye contact Motor Behavior: n akathisia Speech: no pressured speech Affect: + constricted affect Mood: + anxious mood Thought Process: + circumstantial thought process Thought Content: reality based without delusions Suicidal Thoughts: denies suicidal thoughts Homicidal Thoughts: denies homicidal thoughts Hallucinations: no auditory hallucinations and no visual hallucinations Cognition: language grossly intact Insight: + limited insight Judgement: + poor judgement Vital Signs (Past 24 Hours) Last Vital Signs Temp 37.1 C 09/18/22 14:30 Pulse 95 H 09/18/22 15:20 Resp 18 09/18/22 14:30 BP 134/77 09/18/22 14:30 Pulse Ox 99 09/18/22 14:30 O2 Del Method 09/18/22 14:30 Results & Data ([facility]) Laboratory Results Laboratory Results - last 24 hr 09/18/22 09/18/22 09/18/22 06:31 08:43 08:43 WBC 5.92 RBC 5.01 Hgb 15.2 Hct 44.5 MCV 88.8 MCH 30.3 MCHC 34.2 RDW Std Deviation 38.5 RDW Coeff of Jennifer 11.9 Plt Count 166 MPV 10.3 Immature Gran % (Auto) 0.2 Neut % (Auto) 60.2 Lymph % (Auto) 32.6 Kane % (Auto) 5.4 Eos % (Auto) 0.8 Baso % (Auto) 0.8 Neut # (Auto) 3.56 Lymph # (Auto) 1.93 Kane # (Auto) 0.32 Eos # (Auto) 0.05 Baso # (Auto) 0.05 Immature Gran # (Auto) 0.01 Sodium 139 137 Potassium 4.0 4.3 Chloride 109 H 107 Carbon Dioxide 25 26 Anion Gap 5 4 BUN 7 7 Creatinine 0.86 0.88 Est Cr Clr Drug Dosing 120.4 117.7 Est GFR ( Amer) 137.7 136.4 Est GFR (Non-Af Amer) 118.8 117.7 BUN/Creatinine Ratio 8.1 L 8.0 L Glucose 90 117 H Calcium 8.6 9.0 Magnesium 1.8 1.8 Total Bilirubin 1.0 AST 19 ALT 16 Alkaline Phosphatase 67 Total Creatine Kinase 380 H Total Protein 6.7 Albumin 4.4 Globulin 2.3 L Albumin/Globulin Ratio 1.9 Current Inpatient Medications Current Inpatient Medications: Current Inpatient Medications Sodium Chloride (Nss 1000ml) 1,000 mls @ 60 mls/hr IV .[id number] [facility] Stop: 10/16/22 21:50 Last Admin: 09/18/22 10:45 Dose: 60 mls/hr Lorazepam (Lorazepam 2 Mg/1 Ml Vial) 1 mg IV Q2H PRN PRN Reason: Agitation Stop: 10/16/22 21:50 Last Admin: 09/17/22 19:37 Dose: 1 mg Nitroglycerin (Nitroglycerin Sl 0.4 Mg/Tab Tab) 0.4 mg SL UD PRN PRN Reason: Chest Pain Stop: 10/16/22 21:50 Quetiapine Fumarate (Quetiapine Fumarate 25 Mg Tablet) 50 mg PO Q6H PRN PRN Reason: Anxiety/Insomnia Stop: 10/17/22 14:41 (1) Overdose Encounter type: initial encounter Injury intent: undetermined intent Qualified Code(s): T50.904A - Poisoning by unspecified drugs, medicaments and biological substances, undetermined, initial encounter (2) AMS (altered mental status) Altered mental status type: unspecified Qualified Code(s): R41.82 - Altered mental status, unspecified
[2022-09-19] MEDS: LORazepam 2 MG/1 ML VIAL IV PRN (02:01)
[2022-09-19] MEDS: SODIUM CHLORIDE 0.9% 1000ML 1,000 ML IV SCH (03:28)
--- NOTE | 2022-09-19 10:45 | Electrocardiogram Report ---
Test Reason : Blood Pressure : / mmHG Vent. Rate : 077 BPM Atrial Rate : 077 BPM P-R Int : 156 ms QRS Dur : 084 ms QT Int : 376 ms P-R-T Axes : 064 038 040 degrees QTc Int : 425 ms Poor data quality, interpretation may be adversely affected Sinus rhythm RSR' or QR pattern in V1 suggests right ventricular conduction delay Abnormal ECG When compared with ECG of 17-SEP-2022 09:10, No significant change was found Confirmed by Aydin Meade ([id number]) on 09/19/2022 10:45:04 AM Referred By: [facility] Confirmed By:Aydin Meade
--- NOTE | 2022-09-19 11:01 | Electrocardiogram Report ---
Test Reason : Blood Pressure : / mmHG Vent. Rate : 077 BPM Atrial Rate : 077 BPM P-R Int : 162 ms QRS Dur : 094 ms QT Int : 370 ms P-R-T Axes : 064 070 061 degrees QTc Int : 418 ms Normal sinus rhythm Normal ECG When compared with ECG of 18-SEP-2022 05:11, No significant change was found Confirmed by Aydin Meade ([id number]) on 09/19/2022 11:00:46 AM Referred By: [facility] Confirmed By:Aydin Meade
--- NOTE | 2022-09-19 15:43 | Hospitalist Progress Note ---
Date of Service September 19, 2022 Assessment & Plan (1) Overdose: Plan: Per Dr. Faulkner's notes with addendum: Has been bipolar disorder and on multiple antipsychotic medications as in the medication list Took a number of medications to get the to get some symptomatic improvement Came in with change in mental status Poison center was consulted and EKGs are done which are not showing any significant QT prolongation Has significant spasmodic movements involving the extremities and occasional agitation Appreciate psychiatric input and recommendation 09/18 Oriented x3, but reports shakiness, anxiety, racing thoughts, not sleeping well Requests psych reevaluation, discussed with psych liaison Nanci Discussed with Dr. 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 09/19 calm, cooperative feels better overall able to sleep last night has mild anxiety cleared by Poison Control center agreeable to return to [facility] today resume Psych medications as per Psych Provider at [facility] discussed with Gisela STALLINGS at [facility] Spasmodic movements involving the extremities On as needed Ativan Mild rhabdomyolysis CPK levels trending down Given IV fluids, advised to drink more water (2) Bipolar 1 disorder: Plan: Has been on multiple medications All of the medicines are on held except Seroquel and Ativan as needed (3) AMS (altered mental status): Plan: Change in mental status is likely secondary to polydrug overdose Urine tox screen is negative -- Oriented x3, calm, cooperative DVT prophylaxis SCDs CODE STATUS Full Disposition Return to correctional facility, to continue psychiatric care Admission and Anticipated Discharge Date Admission Date: September 16, 2022 Subjective ff up for drug overdose, etc seen with officers at the bedside and 1:1 observation by [employer] sitting up, having a snack calm, cooperative, oriented x 3 states he feels better today, feels calmer states "I am not a bad person doc" requesting for a razor to he can shave no chest pain, dyspnea, palpitations, dizziness no headache, abdominal pain ,nausea/vomiting no other symptoms agreeable for discharge today Review of Systems Review of Systems: all noted and negative except for above Physical Exam Physical Exam: General- oriented x 3, not in distress, speaks in sentences with no effort or accessory muscle use Eyes- anicteric Neck- no JVD Lungs- clear breath sounds bilaterally, no rales/wheezes Heart- normal rate, regular rhythm; no murmurs Abdomen- normal bowel sounds, nondistended, soft, nontender Extremities- no pretibial edema, no calf tenderness Neuro- alert, oriented x 3; no gross focal neurologic deficits Skin- warm & dry Results & Data Results & Data ([facility]) Vital Signs (Past 12 Hours) Vital Signs Temp Pulse Pulse Resp BP BP Pulse Ox 09/19/22 14:06 37.2 C 67 16 108/74 114/79 99 09/19/22 11:36 37.2 C 67 16 114/79 99 09/19/22 07:53 36.5 C 79 16 113/79 100 09/19/22 07:52 70 O2 Del Method 09/19/22 14:06 09/19/22 11:36 Room Air 09/19/22 07:53 Room Air 09/19/22 07:52 all noted and reviewed including below (1) Overdose Encounter type: initial encounter Injury intent: undetermined intent Qualified Code(s): T50.904A - Poisoning by unspecified drugs, medicaments and biological substances, undetermined, initial encounter (2) AMS (altered mental status) Altered mental status type: unspecified Qualified Code(s): R41.82 - Altered mental status, unspecified
--- NOTE | 2022-09-20 08:37 | Discharge Summary ---
Discharge Summary Date of Service September 20, 2022 Notes For Next Care Provider Psych medications as per Psych provider at [facility] Medication Changes From Visit Seroquel 50mg q6h PRN for anxiety, agitation Admission HPI Per Admitting Provider HISTORY OF PRESENT ILLNESS: This 27-year-old male with history of anxiety and bipolar disorder, [facility] from [facility] because of polydrug overdose. The patient says he took trazodone, he took buspirone, his medications and he also took medication from other patient, Trileptal. He does not know how many m edications he took. The patient says he is stressed out. He is speaking randomly and tangentially. Could not get the reason why he took those medications. He was constantly talking. When he came in, he was tachycardic. Currently, he is hemodynamically stable. He says his legs are hurting. Otherwise, denies any chest pain. No shortness of breath, no nausea, no abdominal pain. He says also he has some back pain. Currently, no headache, no blurred visions or double visions. He says he is eating okay. Could not get much history from the patient at this time. Admission Exam Per Admitting Provider GENERAL: The patient is alert and awake, somewhat restless. VITAL SIGNS: Temperature 36.7, pulse 105, respiratory rate 17, blood pressure 128/73, oxygen 96% on room air. HEENT: Pupils equal, round, and reactive to light. Oral mucosa moist. NECK: No JVD, no neck masses. CARDIOVASCULAR: S1 and S2 heard. Tachycardia. No murmurs. RESPIRATORY SYSTEM: Normal AP diameter. No accessory muscle use. No wheezing, no crackles. ABDOMEN: Soft, bowel sounds present, nontender, no distention. CENTRAL NERVOUS SYSTEM: Alert and awake, speaking tangentially. Obeys simple commands. No facial droop. Speech is clear. Moves extremities. EXTREMITIES: No edema, no erythema. Principal Dx & Hospital Course #1 = Principal Diagnosis (1) Overdose: Per Dr. Faulkner's notes with addendum: Has been bipolar disorder and on multiple antipsychotic medications as in the medication list Took a number of medications to get the to get some symptomatic improvement Came in with change in mental status Poison center was consulted and EKGs are done which are not showing any significant QT prolongation Has significant spasmodic movements involving the extremities and occasional agitation Appreciate psychiatric input and recommendation 09/18 Oriented x3, but reports shakiness, anxiety, racing thoughts, not sleeping well Requests psych reevaluation, discussed with psych liaison Nanci Discussed with Dr. 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 09/19 calm, cooperative feels better overall able to sleep last night has mild anxiety cleared by Poison Control center agreeable to return to [facility]al Facility today resume Psych medications as per Psych Provider at [facility] discussed with Gisela STALLINGS at [facility] Spasmodic movements involving the extremities On as needed Ativan Mild rhabdomyolysis CPK levels trending down Given IV fluids, advised to drink more water (2) Bipolar 1 disorder: Has been on multiple medications All of the medicines are on held except Seroquel and Ativan as needed (3) AMS (altered mental status): Change in mental status is likely secondary to polydrug overdose Urine tox screen is negative -- Oriented x3, calm, cooperative DVT prophylaxis SCDs CODE STATUS Full Disposition Return to correctional facility, to continue psychiatric care Discharge Exam General- oriented x 3, not in distress, speaks in sentences with no effort or accessory muscle use Eyes- anicteric Neck- no JVD Lungs- clear breath sounds bilaterally, no rales/wheezes Heart- normal rate, regular rhythm; no murmurs Abdomen- normal bowel sounds, nondistended, soft, nontender Extremities- no pretibial edema, no calf tenderness Neuro- alert, oriented x 3; no gross focal neurologic deficits Skin- warm & dry Updated Medication List Medication Instructions Recorded Confirmed Type white petrolatum 1 applic topical DAILY PRN as 09/16/22 09/16/22 History directed Hospital Stay Data Consultations 09/16/22 18:56 ED Decision to Admit Stat 09/17/22 08:00 Consult Psychiatry Routine Pending Results Patient Have Any Pending Studies at Discharge: No Discharge Instructions Given to Patient (Per Discharging Provider) Resume psychiatry medications per provider at [facility]. Total Time Total Time Spent Total Time Spent (In Minutes): >30 minutes
== END 2022-09-19 14:37 | DRG 918 ==
LOC: ED 17:29 → EDINP 20:09 → SUATTDRO 20:09 → 2S 21:53
DX: R25.8 Other abnormal involuntary movements; T43.591A Poisoning by other antipsychotics and neuroleptics, accidental (unintentional), initial encounter; F41.9 Anxiety disorder, unspecified; Z79.899 Other long term (current) drug therapy; T43.211A Poisoning by selective serotonin and norepinephrine reuptake inhibitors, accidental (unintentional), initial encounter; M62.82 Rhabdomyolysis; F31.9 Bipolar disorder, unspecified; R41.82 Altered mental status, unspecified; R00.0 Tachycardia, unspecified; T42.6X1A Poisoning by other antiepileptic and sedative-hypnotic drugs, accidental (unintentional), initial encounter